=== PATIENT | male | born 1955 | race Caucasian/White ===

== ENCOUNTER → 2019-03-11 | Outpatient (CLI) | payer OTHER ==
[~2019-03-11] MED LIST: ALPRAZOLAM PO; ALTACE PO; AMLODIPINE BESY10 MG PO; CALCIUM PO; ENOXAPARIN30 MG/0.3 SQ; ENOXAPARIN40 MG/0.4; FISH OIL 1,001000 MG PO; FISHOIL PO; HCTZ PO; HYDROCHLOROTH12.5 M1 PO; LODINE XL400 MG PO; MELOXICAM7.5 MG PO; MOBIC7.5 MG PO; MS CONTIN15 MG PO; NORFLEX100 MG PO; OXYCODONE HCL 55 MG PO; OXYCODONE HCL10 MG PO; OXYCODONE HCL15 MG PO; ROXYBOND PO; STOOL SOFTENER1 EAC2 PO; XANAX 0.5 MG0.5 M1 PO; XANAX 0.5 MG0.5 MG PO
== END ==
LOC: M.PC 08:50
DX: M54.5 Low back pain (principal); M54.2 Cervicalgia; Z79.899 Other long term (current) drug therapy

== ENCOUNTER → 2019-04-08 | Outpatient (CLI) | payer OTHER ==
--- NOTE | ~2019-04-08 | PAINCON ---
[address] [address] PAIN MANAGEMENT CONSULTATION Name: WHIT KAPLAN [id number] Admission: 04/08/19 Attend Phys: Edgar Fletcher MD Discharge: Date of : 53 Report #: [id number] THIS REPORT FOR: //name// CC: Edgar Bryant DATE OF SERVICE: 04/08/2019 CHIEF COMPLAINT: Low back and neck pain. HISTORY: The patient is a 63-year-old gentleman who has been followed in the pain clinic because of chronic pain. He has been experiencing pain for greater than 20 years. Complains of pain in the neck area as well as in the right and left shoulders. Right shoulder pain secondary to history of rotator cuff problems. His left shoulder pain he attributed somewhat to his neck as well. States that he has some weakness in the arm with some numbness and tingling down into the arm. Rates his pain as a 3/10 today. He has been treated for lumbar radiculopathy in the past not much complaint or change in the lumbar area at this point. The right torn rotator cuff repair still seems to be somewhat limiting his arm range of motion. Notes that his pain increases with walking and standing. Notes that the medicines are helpful. Twisting, bending and lifting are problematic. He does use heat, cold as well as rest. His medications are beneficial. He feels that the oxycodone medication and Xanax were beneficial. He would like to have them renewed. He feels he is about 70% improved with his medications. ALLERGIES: No known drug allergies. CURRENT MEDICATIONS: Alprazolam 0.5 mg 2 tablets at bedtime, amlodipine 5 mg, Flomax 0.4 mg, oxycodone 15 mg one p.o. 6 hours p.r.n., ramipril 10 mg. PAIN CLINIC ASSESSMENT/PQRS: 1. The patient has a history of osteoarthritic changes involving his right shoulder. He is not being treated for rheumatoid arthritis. He does complain of some left arm pain. Does complain of some lumbar pain. 2. Height 5 feet 10 inches, weight 191 pounds, BMI is 27.4. 3. Vital signs: Blood pressure 147/78, heart rate 67, respiratory rate 16, room air saturation 96%, temperature 97.7. 4. Pain intensity 3/10. 5. Fall history: The patient has not fallen in the last 3 months. 6. Blood thinner. The patient is not on a blood thinning medication. 7. Hypertension. The patient is being treated for hypertension. 8. Opioids greater than 6 weeks. The [facility]. 9. Risk assessment tool, low for opioid use. 10. [place] [address] PAIN MANAGEMENT CONSULTATION Name: WHIT KAPLAN Room: [facility]#: [id number] Admission: 04/08/19 Attend Phys: Edgar Fletcher MD Discharge: Date of : 53 Report #: [id number] 11. Recreational drug use. The patient denies. 12. Tobacco: The patient does smoke cigarettes. We have discussed the benefits of smoking cessation. Has smoked for 20 years. Smokes 1-1/2 pack of cigarettes per day. 13. Alcohol: The patient denies other than rare use of alcoholic beverages. PHYSICAL EXAMINATION: GENERAL: The patient is a well-developed, well-nourished white male. Appears his stated age. He is alert and oriented x 3. Affect is appropriate. Speech is fluent. HEENT: Normocephalic, atraumatic. Extraocular eye muscles intact. Sclerae nonicteric. Mucous membranes are moist. NECK: Without adenopathy. The patient has some soreness in his neck. Notes that there is some pain radiating down to the area of the C1 portion of his neck. Has pain in his right deltoid with some limited range of motion. Has pain and perception of discomfort down his left arm with some numbness and tingling into his forearm. LUNGS: Generally clear to auscultation. HEART: Regular rate. ABDOMEN: Nontender. MUSCULOSKELETAL: Without significant scoliosis, kyphosis or lordosis. The patient has history of lumbar radicular pain. No real complaints of pain today. IMPRESSION: 1. Chronic pain treated with complex medical management using opioids. 2. Anxiety disorder. 3. Bursitis. 4. Bilateral trochanteric pain, cervical radiculopathy. 5. Chronic pain syndrome. 6. Hypertension. 7. Osteoarthritis of the spine. 8. History of bilateral hip replacements. RECOMMENDATIONS: We discussed treatment options with the patient. At this juncture, we will continue with his medications. He feels medications are helpful. He feels he is about 70% improved. He is aware that opioid medications can be helpful. He is aware that opioid medications can become less effective over time. The patient is aware of some patients who have developed addiction. He is not exhibiting any addictive behavior. States he keeps his medications in a guarded area. He would like to continue the medications given that they are improving his way of life and activities of daily living with about 70% improvement. At this juncture, we will rewrite his opioid medication. The patient will continue with oxycodone 15 mg 1 p.o. t.i.d. He will also continue with Xanax 0.5 mg 1 p.o. t.i.d. [place] [address] PAIN MANAGEMENT CONSULTATION Name: WHIT KAPLAN Room: [facility]#: [id number] Admission: 04/08/19 Attend Phys: Edgar Fletcher MD Discharge: Date of : 53 Report #: [id number] We would like to thank you for letting us participate in his care. We hope he continues to improve. By: 0934 [id number]. Jason Fletcher MD /nt
== END ==
LOC: M.PC 05:11
DX: M54.12 Radiculopathy, cervical region (principal); M71.9 Bursopathy, unspecified; G89.29 Other chronic pain; F41.9 Anxiety disorder, unspecified; G89.4 Chronic pain syndrome; I10 Essential (primary) hypertension; M47.819 Spondylosis without myelopathy or radiculopathy, site unspecified; Z96.643 Presence of artificial hip joint, bilateral; Z79.899 Other long term (current) drug therapy; Z79.891 Long term (current) use of opiate analgesic

== ENCOUNTER → 2019-05-06 | Outpatient (CLI) | payer OTHER ==
[~2019-05-06] MED LIST changes: +ROXICODONE15 MG PO
--- NOTE | 2019-05-14 09:09 | PAINCON ---
[address] [address] PAIN MANAGEMENT CONSULTATION Name: WHIT KAPLAN Room: [facility]#: [id number] Admission: 05/06/19 Attend Phys: Edgar Fletcher MD Discharge: Date of : 53 Report #: [id number] THIS REPORT FOR: //name// CC: Edgar Bryant DO DATE OF SERVICE: 05/06/2019 CHIEF COMPLAINT: Chronic low back and neck pain. HISTORY OF PRESENT ILLNESS: The patient is a 63-year-old gentleman who has been seen in the pain clinic because of chronic back and neck pain. He continues to have some pain and discomfort that radiates down in his neck to the left arm and down into the arm area. He feels that his medications of oxycodone had been beneficial. He still has some pain and discomfort in his right shoulder. He has had rotator cuff surgery. He rates his pain score as a 2/10 today. Notes his pain is worse with activities. Has noted some increase in discomfort because of the colder temperatures. Walking, standing, lifting and bending, twisting can exacerbate his discomfort. He feels the medications are working reasonably well and would like to continue their use. He has returned today for renewal of his medications. He feels that he is about 70% improved with his current medical regimen. ALLERGIES: No known drug allergies. CURRENT MEDICATIONS: Alprazolam 0.5 mg 2 tablets at bedtime, amlodipine 5 mg, Flomax 0.4 mg, oxycodone 15 mg one p.o. q.6 hours p.r.n. and ramipril 10 mg. PAIN CLINIC ASSESSMENT AND PQRS: 1. The patient has a history of osteoarthritis and has had bilateral hip replacements. He has shoulder pain and has had right rotator cuff repair. He is not being treated for rheumatoid arthritis. He does complain of some lumbar pain. 2. Height 5 feet 10 inches, weight 195 pounds, BMI is 28.0. 3. Vital signs: Blood pressure 151/77, heart rate 66, respiratory rate 16, room air saturation is 97% and temperature 97.7. 4. Pain intensity is 2/10. 5. Fall history: The patient has not fallen since we saw him last. 6. Blood thinner. The patient is not on a blood-thinning medication. 7. Hypertension. The patient is being treated for hypertension. 8. Opioids greater than 6 weeks. The [facility]. 9. Risk assessment tool, low for opioid use. 10. Functional assessment tool. 11. Recreational drug [place]. [place] [address] PAIN MANAGEMENT CONSULTATION Name: WHIT KAPLAN Room: [facility]#: [id number] Admission: 05/06/19 Attend Phys: Edgar Fletcher MD Discharge: Date of : 53 Report #: [id number] 12. Tobacco: The patient denied: The patient does smoke cigarettes. We discussed the risks and benefits of smoking cessation. Continues to smoke one and a half pack of cigarettes per day, has smoked for the last 20 years. 13. Alcohol. The patient denies use of alcohol except on rare occasion. PHYSICAL EXAMINATION: GENERAL: The patient is a well-developed, well-nourished white male. Appears his stated age. He is alert and oriented x 3. His affect is appropriate. Speech is fluent. HEENT: Normocephalic, atraumatic. Extraocular eye muscles intact. Sclerae nonicteric. The patient is wearing glasses. NECK: Without adenopathy or JVD. The patient has pain and discomfort that radiates from his left shoulder down to the left arm. Has some pain and discomfort in the right deltoid area with some decreased range of motion. LUNGS: Generally clear to auscultation. HEART: Regular rate. ABDOMEN: Nontender. MUSCULOSKELETAL: Without significant scoliosis, kyphosis, or lordosis. The patient has a history of lumbar radicular pain. IMPRESSION: 1. Chronic pain treated with complex medical management using opioids. 2. Anxiety disorder. 3. Bursitis. 4. Bilateral trochanteric pain. 5. Cervical radiculopathy. 6. Chronic pain syndrome. 7. Hypertension. 8. Osteoarthritis of the spine. 9. History of bilateral hip replacements. RECOMMENDATIONS: We discussed treatment options with the patient. At this juncture, we will continue with his current medical regimen of oxycodone 15 mg 1 p.o. t.i.d. The patient is aware that these medications can be helpful. He is aware these medications can become less effective as time goes on. He is not showing signs of addiction. He has taken the medication as prescribed. We have explained that 70,000 people last year as a result of use of opioid, as a result of overdosing. At this juncture, he would like to continue with his medications. A script for his medication of oxycodone 15 mg 1 p.o. t.i.d. He feels that these medications are helpful. He is aware of that use of Xanax and his other medication in conjunction with alcohol could be problematic. The patient refrained from doing this. We would like to thank you for letting us participate in his care. We hope he [address] [address] PAIN MANAGEMENT CONSULTATION Name: WHIT KAPLAN Room: [facility]#: [id number] Admission: 05/06/19 Attend Phys: Edgar Fletcher MD Discharge: Date of : 53 Report #: [id number] continues to improve. The patient has been written for alprazolam 0.5 mg one p.o. t.i.d. in conjunction with oxycodone 1 tablet of 15 mg p.o. t.i.d. <ELECTRONICALLY SIGNED> By: Edgar Fletcher MD 05/14/19 0909 [id number] [id number]. Jason Fletcher MD /nt
== END ==
LOC: M.PC 05:46
DX: M47.819 Spondylosis without myelopathy or radiculopathy, site unspecified (principal); M54.12 Radiculopathy, cervical region; G89.4 Chronic pain syndrome; I10 Essential (primary) hypertension; F41.9 Anxiety disorder, unspecified; Z96.643 Presence of artificial hip joint, bilateral; Z79.891 Long term (current) use of opiate analgesic

== ENCOUNTER → 2019-06-03 | Outpatient (CLI) | payer OTHER ==
--- NOTE | 2019-06-09 19:22 | PAINCON ---
[address] [address] PAIN MANAGEMENT CONSULTATION Name: WHIT KAPLAN Room: [facility]#: [id number] Admission: 06/03/19 Attend Phys: Edgar Fletcher MD Discharge: Date of : 53 Report #: [id number] THIS REPORT FOR: //name// CC: Edgar Bryant DO DATE OF SERVICE: 06/03/2019 CHIEF COMPLAINT: Pain in the neck and down in the left arm as well as low back pain. HISTORY: The patient is a 63-year-old gentleman who has been followed in the Pain Clinic because of chronic pain. As you may recall, he has had some problems with cervical radicular pain. It involves his left shoulder area with some numbness and tingling down into his arm. States that he has some nerve damage there, which is probably secondary to his neck. Also, has pain in his low back area. He has had some problems with his rotator cuff. He has undergone surgery for that. He notes that the colder temperatures have worsened his discomfort. Temperature outside today is 13. Notes that walking, standing, lifting, bending all can exacerbate his problem. He feels overall that pain is about 80%-85% improved with his current medical regimen. Notes that heat, cold as well as rest can improve his discomfort. He has returned today for renewal of his medication. He has had no complications with it. ALLERGIES: No known drug allergies. CURRENT MEDICATIONS: Alprazolam 0.5 mg two tablets at bedtime, amlodipine 5 mg, Flomax 0.4 mg, oxycodone 15 mg one p.o. t.i.d., ramipril 10 mg. PAIN CLINIC ASSESSMENT/PQRS: 1. The patient has a history of osteoarthritis and has had bilateral hip replacements. He has pain in his shoulder and has had right rotator cuff repair. He is not being treated for rheumatoid arthritis. 2. Height 5 feet 10 inches, weight 201 pounds, BMI is 28.8. 3. Vital Signs: Blood pressure 164/80, heart rate 68, respiratory rate 16, room air saturation 98%, temperature 97.6. 4. Pain score 3/10. 5. Fall history. The patient has not fallen in the last 3 months. 6. Blood thinner. The patient is not on a blood thinning medication. 7. Hypertension. The patient is being treated for hypertension. 8. Opioids greater than six weeks. The patient received medication from [facility]. 9. Risk assessment tool, low for opioid use. 10. Functional assessment tool. 11. Recreational drug [place] [address] PAIN MANAGEMENT CONSULTATION Name: WHIT KAPLAN Room: [facility]#: [id number] Admission: 06/03/19 Attend Phys: Edgar Fletcher MD Discharge: Date of : 53 Report #: [id number] 12. Tobacco. The patient admits to smoking cigarettes. He has smoked one and half pack of cigarettes per day for last 20 years. 13. Alcohol. The patient denies use of alcoholic beverages except rarely. PHYSICAL EXAMINATION: GENERAL: The patient is a well-developed, well-nourished white male. Appeared his stated age. He is alert and oriented x 3. His affect is appropriate. Speech is fluent. He does smell of tobacco. HEENT: Normocephalic, atraumatic. Extraocular eye muscles intact. Sclerae nonicteric. The patient is wearing glasses. NECK: Without adenopathy or JVD. The patient has some pain and discomfort in his neck with pain that radiates into the left shoulder with some down the left arm. Notes some decreased range of motion in his left shoulder. LUNGS: Clear to auscultation. HEART: Regular rate. ABDOMEN: Nontender. Bowel sounds present. MUSCULOSKELETAL: Without significant scoliosis, kyphosis or lordosis. IMPRESSION: 1. Chronic pain treated with complex medical regimen using opioids. 2. Anxiety disorder. 3. Bursitis. 4. Bilateral trochanteric pain. 5. Cervical radiculopathy. 6. Chronic pain syndrome. 7. Hypertension. 8. Osteoarthritis of the spine. 9. History of bilateral hip replacements. RECOMMENDATIONS: We discussed treatment options with the patient. At this juncture, we will continue with his current medications. He feels that overall things are improved with use of his Roxicodone. Rates his pain as a 3 today. He feels that his pain is about 85% improved on his current regimen. He is able to stay active. He is able to enjoy life. He is keeping his medications in a guarded area. He is aware that addiction can develop. He does not feel that he is addicted. He is showing no signs of addictive behavior. Keeps his medications in a guarded area. The patient feels that the Xanax medication helps with his anxiety. He would like to have this medication renewed. A script for Xanax 0.5 mg one p.o. t.i.d. has been written, a total of 90 tablets. The patient will also continue with the Roxicodone 15 mg one p.o. t.i.d. [address] [address] PAIN MANAGEMENT CONSULTATION Name: WHIT KAPLAN Room: [facility]#: [id number] Admission: 06/03/19 Attend Phys: Edgar Fletcher MD Discharge: Date of : 53 Report #: [id number] He will call us if he has any concerns. We would like to thank you for letting us participate in his care. We hope he continues to improve. <ELECTRONICALLY SIGNED> By: Edgar Fletcher MD 06/09/19 [id number] 1009N. Jason Fletcher MD /nt
== END ==
LOC: M.PC 04:12
DX: G89.4 Chronic pain syndrome (principal); F41.9 Anxiety disorder, unspecified; M54.12 Radiculopathy, cervical region; I10 Essential (primary) hypertension; M47.819 Spondylosis without myelopathy or radiculopathy, site unspecified; Z96.643 Presence of artificial hip joint, bilateral

== ENCOUNTER → 2019-07-01 | Outpatient (CLI) | payer OTHER ==
[~2019-07-01] MED LIST changes: +FLOMAX0.4 MG PO
--- NOTE | ~2019-07-01 | PAINCON ---
[address] [address] PAIN MANAGEMENT CONSULTATION Name: WHIT KAPLAN [id number] Admission: 07/01/19 Attend Phys: Edgar Fletcher MD Discharge: Date of : 53 Report #: [id number] THIS REPORT FOR: //name// CC: Edgar Bryant DO DATE OF SERVICE: 07/01/2019 CHIEF COMPLAINT: Medications are working relatively well, but still having pain in the neck. HISTORY: The patient is a 63-year-old gentleman who has been followed in the pain clinic. As you will recall, he has a history of back pain. It involves the neck as well. Notes that if he turns his head in a certain position, he experiences more pain and discomfort. It involves his right shoulder. He has had a right rotator cuff repair. Rotation of his neck increases the pain and discomfort he finds in this area. He has undergone surgery for the rotator cuff. He notes that because of the change in temperature, his pain has changed. He rates his pain as a 3/10 at this point. Feels that he is about 80%-85% better with his current medical regimen. He is able to remain active because of this benefit he receives from his medications. He has returned today with the hopes to have his medications renewed. ALLERGIES: No known drug allergies. CURRENT MEDICATIONS: Alprazolam 0.5 mg 2 tablets at bedtime, amlodipine 5 mg, Flomax 0.4 mg, oxycodone 5 mg 1 p.o. t.i.d., Ramipril 10 mg. PAIN CLINIC ASSESSMENT/PQRS: 1. The patient has history of osteoarthritis and had bilateral hip replacements. Has some pain in his right shoulder. Has had a right shoulder rotator cuff repair. He is not being treated for rheumatoid arthritis. 2. Height 5 feet 10 inches, weight is 202 pounds, BMI is 29, blood pressure 145/100, heart rate 77, respiratory rate 16, room air saturation 97%, temperature 97.6. 3. Pain score 3/10. 4. Fall history: The patient has not fallen in the last 3 months. 5. Blood thinner. The patient is not on a blood thinning medication. 6. Hypertension. The patient is being treated for hypertension. 7. Opioids greater than 6 weeks. [facility]. 8. Risk assessment tool, low for opioid use. 9. Functional assessment tool. 10. Recreational drug use: The patient denies. 11. Tobacco: The patient admits to tobacco. [place] [address] PAIN MANAGEMENT CONSULTATION Name: WHIT KAPLAN [facility] [id number] Admission: 07/01/19 Attend Phys: Edgar Fletcher MD Discharge: Date of : 53 Report #: [id number] 20 years. Smokes 1-1/2 pack of cigarettes daily. 12. Alcohol. The patient denies use of alcoholic beverages except on rare occasion. PHYSICAL EXAMINATION: GENERAL: The patient is a well-developed, well-nourished white male. Appears his stated age. He is alert and oriented x 3. Affect is appropriate. Speech is fluent. Does smell of tobacco. HEENT: Normocephalic, atraumatic. Extraocular eye muscles intact. Sclerae nonicteric. Mucous membranes are moist. The patient is wearing glasses. NECK: Without adenopathy or JVD. Complains of some pain and discomfort when he rotates his head to the right or the left. Has had some pain that radiates down to his left arm. Has decreased range of motion in his shoulders. HEART: Regular rate. ABDOMEN: Nontender. Bowel sounds present. MUSCULOSKELETAL: Without significant scoliosis, kyphosis or lordosis. IMPRESSION: 1. Chronic pain treated with complex medical regimen using opioids. 2. Anxiety disorder. 3. Bursitis. 4. Bilateral trochanteric pain. 5. Cervical radiculopathy. 6. Chronic pain syndrome. 7. Hypertension. 8. Osteoarthritis of the spine. 9. History of bilateral knee replacements. RECOMMENDATIONS: We discussed treatment options with the patient. At this juncture, we will continue with his medications. He feels that they are helpful. He is able to engage in activities, would not be able to without their use. He notes that he gets about 85% improvement with his pain. He has some pain and discomfort with exchanging cold temperatures. Walking, standing, bending, and lifting are problematic. Notes that use of medications, hot, cold and rest are beneficial as well. He is aware that opioid medications can be problematic in certain patients. He is not having withdrawal symptoms. He is not showing signs of addiction. He has taken the medication as prescribed. A script for his medications has been rewritten. He will continue with the oxycodone 15 mg 1 p.o. t.i.d., a total of 90 tablets have been provided. The patient will also continue with his antianxiety medication and Xanax 0.5 mg 1 p.o. t.i.d., a total of 90 tablets [place] [address] PAIN MANAGEMENT CONSULTATION Name: WHIT KAPLAN Room: [facility]#: [id number] Admission: 07/01/19 Attend Phys: Edgar Fletcher MD Discharge: Date of : 53 Report #: [id number] We would like to thank you for letting us participate in his care. We hope he continues to improve. By: 0951 1033N. Jason Fletcher MD /nt
== END ==
LOC: M.PC 05:03
DX: M54.12 Radiculopathy, cervical region (principal); M25.511 Pain in right shoulder; M71.9 Bursopathy, unspecified; G89.4 Chronic pain syndrome; I10 Essential (primary) hypertension; F41.9 Anxiety disorder, unspecified; Z79.891 Long term (current) use of opiate analgesic; Z79.899 Other long term (current) drug therapy

== ENCOUNTER → 2019-07-29 | Outpatient (CLI) | payer OTHER ==
--- NOTE | ~2019-07-29 | PAINCON ---
[facility] [address] [place] [address] PAIN MANAGEMENT CONSULTATION Name: WHIT KAPLAN Room: [facility]#: [id number] Admission: 07/29/19 Attend Phys: Edgar Fletcher MD Discharge: Date of : 53 Report #: [id number] THIS REPORT FOR: //name// CC: Edgar Bryant DO DATE OF SERVICE: 07/29/2019 CHIEF COMPLAINT: Pain in the neck area, hips and rotator cuff. HISTORY: The patient is a 63-year-old gentleman who has been followed in the Pain Clinic. He has a history of back pain. He also has pain involving his neck. He has pain involving his right shoulder. He has had some problem with his rotator cuff and has had surgical repair, but still continues to have pain. Has pain in his hips. Has had hip replacements. He feels that his pain is about 80% to 85% improved on his current regimen of oxycodone. Notes some tingling in his left arm. He has returned today with the hopes of having his medications renewed. States that he has taken the medication as prescribed with no side effects. ALLERGIES: No known drug allergies. CURRENT MEDICATIONS: Alprazolam 0.5 mg 2 tablets at bedtime, amlodipine 5 mg, Flomax 0.4 mg, oxycodone 15 mg 1 p.o. t.i.d., ramipril 10 mg. PAIN CLINIC ASSESSMENT AND PQRS: 1. The patient has a history of osteoarthritis, has had bilateral hip replacements. Has some right shoulder pain. He has had right rotator cuff repair. He has not being treated for rheumatoid arthritis. 2. Height 5 feet 10 inches, 197 pounds, BMI is 28.5. 3. Vital signs: Blood pressure is 151/86, heart rate 65, respiratory rate 16, room air saturation 97%, temperature 97.8. 4. Pain intensity 09/29. 5. Fall history: The patient has not fallen in the last 3 months. 6. Blood thinner. The patient is not on a blood-thinning medication. 7. Hypertension. The patient is being treated for hypertension. 8. Opioids greater than 6 weeks. The patient receives medication [facility], pain clinic. 9. Risk assessment tool, low for opioid use. 10. Functional assessment tool, reviewed. 11. Recreational drug use: The patient denies. 12. Tobacco: The patient admits to use of tobacco. Has used cigarettes for the past 20 years. Smokes 1-1/2 pack of cigarettes per day at this point. 13. Alcohol. The patient denies use of alcoholic [place] [address] PAIN MANAGEMENT CONSULTATION Name: WHIT KAPLAN Room: [facility]#: [id number] Admission: 07/29/19 Attend Phys: Edgar Fletcher MD Discharge: Date of : 53 Report #: [id number] PHYSICAL EXAMINATION: GENERAL: The patient is a well-developed, well-nourished white male. Appears his stated age. He is alert and oriented x 3. His affect is appropriate. Speech is fluent. HEENT: Normocephalic, atraumatic. Extraocular eye muscles intact. Sclerae nonicteric. Mucous membranes are moist. The patient is wearing glasses. Does smell of tobacco smoke. NECK: Without adenopathy or JVD. Has complained of pain in the right shoulder area. Notes some increased pain and discomfort in the left arm. Notes that there is some tingling down into his left arm. Notes some decreased range of motion in his shoulders. HEART: Regular rate. ABDOMEN: Nontender. MUSCULOSKELETAL: Without significant scoliosis, kyphosis or lordosis. IMPRESSION: 1. Chronic pain treated with complex medical management using opioids. 2. Anxiety disorder. 3. Bursitis. 4. Bilateral trochanteric pain in the past. 5. Cervical radiculopathy. 6. Chronic pain syndrome. 7. Hypertension. 8. Osteoarthritis of the spine. 9. History of bilateral hip replacements. RECOMMENDATIONS: We discussed treatment options with the patient. At this juncture, he feels that his medications continue to be helpful. We will continue with his current medical regimen of Roxicodone. The patient is aware that opioid medications can be helpful. They can become less effective over time secondary to development of tolerance. He feels that the medications are beneficial. He is able to engage in more activities than he could without them. He keeps his medications in a guarded area. He is not showing signs of addiction. He is taking the medications as prescribed. We will continue with his oxycodone. He will also continue with Xanax. He is aware that these medications can be problematic if not taken as directed. He will continue his medications. A script for Xanax 0.5 mg 1 p.o. t.i.d. has been written. A script for oxycodone 15 mg 1 p.o. t.i.d. have been written. The patient will call us if he has any concerns. [address] [address] PAIN MANAGEMENT CONSULTATION Name: WHIT KAPLAN Room: [facility]#: [id number] Admission: 07/29/19 Attend Phys: Edgar Fletcher MD Discharge: Date of : 53 Report #: [id number] We would like to thank you for letting us participate in his care. We hope he continues to improve. By: [id number]. Jason Fletcher MD /anil
== END ==
LOC: M.PC 09:07
DX: M54.12 Radiculopathy, cervical region (principal); I10 Essential (primary) hypertension; F41.9 Anxiety disorder, unspecified; Z79.899 Other long term (current) drug therapy; Z79.891 Long term (current) use of opiate analgesic; Z96.643 Presence of artificial hip joint, bilateral

== ENCOUNTER → 2019-08-26 | Outpatient (CLI) | payer OTHER ==
--- NOTE | ~2019-08-26 | PAINCON ---
[address] [address] PAIN MANAGEMENT CONSULTATION Name: WHIT KAPLAN Room: [facility]#: [id number] Admission: 08/26/19 Attend Phys: Edgar Fletcher MD Discharge: Date of : 53 Report #: [id number] THIS REPORT FOR: //name// cc: Hal Bryant Reuel M. DO ~ THIS REPORT FOR: //name// CC: Edgar Bryant DO DATE OF SERVICE: 08/26/2019 CHIEF COMPLAINT: Pain in the hips, back and right rotator cuff. HISTORY: The patient is a 63-year-old gentleman who has been followed in the pain clinic because of chronic neck and back pain. He returns today indicating that his pain continues to be helped with his current medical regimen. He rates his pain as a 3/10. Has pain in both hips, which have been replaced. Also, has pain in his right rotator cuff. Overall, he feels his medications are helpful. They are not affecting his sensorium. He is able to think clearly. No problem with bowel or bladder function. ALLERGIES: No known drug allergies. CURRENT MEDICATIONS: Alprazolam 0.5 mg 2 tablets at bedtime, amlodipine 5 mg, Flomax 0.4 mg, oxycodone 15 mg 1 p.o. t.i.d., ramipril 10 mg. PAIN CLINIC ASSESSMENT AND PQRS: 1. The patient has a history of osteoarthritis. He has had bilateral hip replacements. Has pain in his right shoulder and has had a rotator cuff tear. The patient is not being treated for rheumatoid arthritis. 2. Height 5 feet 10 inches, weight 201 pounds, BMI 28.6. 3. Vital signs: Blood pressure 149/76, heart rate 74, respiratory rate 18, room air saturation 96%, temperature 98.1. 4. Pain intensity is a 3/10. 5. Fall history: The patient has not fallen since we saw her last. 6. Blood thinner. The patient is not on a blood-thinning medication 7. Hypertension. The patient is being treated for hypertension. 8. Opioids greater than 6 weeks. The patient received medication [facility], pain clinic. 9. Risk assessment tool, low for opioids. 10. Functional assessment tool reviewed. 11. Recreational drug use: The patient denies. 12. Tobacco: The patient admits to use of tobacco. Has used tobacco for the last 20 years. Smokes 1-1/2 pack of cigarettes per [place] [address] PAIN MANAGEMENT CONSULTATION Name: WHIT KAPLAN Room: [facility]#: [id number] Admission: 08/26/19 Attend Phys: Edgar Fletcher MD Discharge: Date of : 53 Report #: [id number] 13. Alcohol. The patient denies use of alcoholic beverages except on rare occasion. PHYSICAL EXAMINATION: GENERAL: The patient is a well-developed, well-nourished white male. Appears his stated age. He is alert and oriented x 3. His affect is appropriate. Speech is fluent. HEENT: Normocephalic, atraumatic. Mucous membranes are moist. The patient is wearing glasses. He is hard of hearing with decreased auditory acuity. NECK: Without adenopathy or JVD. The patient has some right shoulder pain. Has some discomfort in the left arm. Decreased range of motion in shoulders. HEART: Regular rate. ABDOMEN: Nontender. MUSCULOSKELETAL: Without significant scoliosis, kyphosis or lordosis. Lower extremity muscle strength judged to be 5-/5 for the major muscle groups in the lower extremity. IMPRESSION: 1. Chronic pain with complex medical management using opioids. 2. Anxiety disorder. 3. Bursitis. 4. Bilateral trochanteric pain in the past. 5. Cervical radiculopathy. 6. Chronic pain syndrome, treated with opioid medications to help control the pain. 7. Hypertension. 8. Osteoarthritis of the spine. 9. History of bilateral hip replacements. RECOMMENDATIONS: We discussed treatment options with the patient. At this juncture, he feels medications are working reasonably well. He does not have any problems with the medications. He has taken them as prescribed. Risks and benefits of opioid medications again were discussed and reviewed. Opioid medications can be in some folks problematic. They can develop addiction. The patient does not show any signs of addiction. He has taken the medication as prescribed. Finds that they enable him to engage in activities of daily living he would not be able to without their use. He does not have any problems with clouding his sensorium. He will continue with the medication. A script for his medications of oxycodone 15 mg 1 p.o. t.i.d. has been provided. The patient will also continue with alprazolam 0.5 mg [address]i.d[address] [address] PAIN MANAGEMENT CONSULTATION Name: WHIT KAPLAN Room: [facility]#: [id number] Admission: 08/26/19 Attend Phys: Edgar Fletcher MD Discharge: Date of : 53 Report #: [id number] We would like to thank you for letting us participate in his care. We hope he continues to improve. He will call us if he has any concerns. By: [id number]. Jason Fletcher MD /nt
== END ==
LOC: M.PC 05:15
DX: G89.29 Other chronic pain (principal); F41.9 Anxiety disorder, unspecified; M71.9 Bursopathy, unspecified; M47.819 Spondylosis without myelopathy or radiculopathy, site unspecified; Z96.643 Presence of artificial hip joint, bilateral; Z79.891 Long term (current) use of opiate analgesic

== ENCOUNTER → 2019-09-23 | Outpatient (CLI) | payer OTHER ==
--- NOTE | 2019-10-17 08:28 | PAINCON ---
[address] [address] PAIN MANAGEMENT CONSULTATION Name: WHIT KAPLAN [id number] Admission: 09/23/19 Attend Phys: Edgar Fletcher MD Discharge: Date of : 53 Report #: [id number] THIS REPORT FOR: //name// cc: Hal Bryant Reuel M. DO ~ THIS REPORT FOR: //name// CC: Edgar Bryant DATE OF SERVICE: 09/23/2019 CHIEF COMPLAINT: Chronic pain in the hip, back and shoulders. HISTORY: The patient is a 63-year-old gentleman who has been followed in the pain clinic. As you may recall, he has a number of pain generators. He has chronic neck pain. He has back pain. He has some complaints of right rotator cuff pain. He feels that his current medications are helpful. He denies any significant changes. Her rates his pain as a 3/10. He feels that activities are limited. He notes walking, sitting, standing can worsen his pain. He does try to decrease the pain by using cold and heat. Rest sometimes could be an option. Overall, he feels his medications with the oxycodone continues to be efficacious. He has returned today with the hopes of renewing his medication. He states that these medications help make his daily existence more tolerable. He denies any problems with these medications fogging his sensorium. He is able to think clearly. Denies any new bowel or bladder function problems. ALLERGIES: No known drug allergies. CURRENT MEDICATIONS: Alprazolam 0.5 mg 2 tablets at bedtime, amlodipine 5 mg, Flomax 0.4 mg, oxycodone 15 mg 1 p.o. t.i.d., ramipril 10 mg. PAIN CLINIC ASSESSMENT AND PQRS: 1. The patient has a history of osteoarthritis. He has had bilateral hip replacement. He has pain in his right shoulder and has had a rotator cuff tear. The patient is not being treated for rheumatoid arthritis. 2. Height 5 feet 10 inch, weight 198 pounds, BMI is 28. 3. Vital Signs: Blood pressure 149/85, heart rate 66, respiratory rate is 16, room air saturation is 95%, temperature 97.3. Pain score 3/10. 4. Fall history: The patient has not fallen since we saw him last. 5. Blood thinner. The patient is not on a blood thinning medication. 6. Hypertension. The patient is being treated for hypertension. 7. Opioids greater than 6 weeks. The [facility]. 8. Risk assessment tool, low for opioid use. 9. Functional assessment [place] [address] PAIN MANAGEMENT CONSULTATION Name: WHIT KAPLAN Room: [facility]#: [id number] Admission: 09/23/19 Attend Phys: Edgar Fletcher MD Discharge: Date of : 53 Report #: [id number] 10. Recreational drug use: The patient denies. 11. Tobacco: The patient admits to use of tobacco. He has used tobacco for the last 20 years. Smokes 1-1/2 packs of cigarettes per day at this juncture, we discussed benefits of smoking cessation. 12. Alcohol. The patient denies use of alcoholic beverages except on rare occasion. PHYSICAL EXAMINATION: GENERAL: The patient is a well-developed, well-nourished white male. Appears his stated age. He is alert and oriented x 3. His affect is appropriate. Speech is fluent. HEENT: Normocephalic, atraumatic. Extraocular eye muscles intact. Sclerae nonicteric. The patient is wearing glasses. The patient has decreased auditory acuity. NECK: Without JVD or adenopathy. The patient complains of some right shoulder pain. Also, has some pain in his left arm. Decreased range of motion in his shoulders. HEART: Regular rate. ABDOMEN: Nontender. MUSCULOSKELETAL: Without significant scoliosis, kyphosis or lordosis. Lower extremity muscle strength judged to be 5-/5. IMPRESSION: 1. Chronic pain with complex medical management using opioids. 2. Anxiety disorder. 3. Bursitis. 4. Bilateral trochanteric pain in the past. 5. Cervical radiculopathy. 6. Chronic pain syndrome, treated with opioid medications to help control this chronic pain. 7. Hypertension. 8. Osteoarthritis of the spine. 9. History of bilateral hip replacements. RECOMMENDATIONS: We discussed treatment options with the patient. At this juncture, we will continue with his medications. He feels that his medications are working well. He does not have any problems with the medications. Denies any bowel or bladder dysfunction problems. He is able to think clearly. He has not shown any signs of addiction. He has taken the medication as prescribed. Keeps his medications in a guarded area. He is aware that a number of people have over the past few years secondary to overdosing of medications. We will continue with his medication. A script for oxycodone 15 mg 1 p.o. t.i.d. has been provided. The patient will also continue with alprazolam 0.5 mg 1 p.o. t.i.d. He will call us if he has any concerns. [facility] [address] [place] [address] PAIN MANAGEMENT CONSULTATION Name: WHIT KAPLAN Room: [facility]#: [id number] Admission: 09/23/19 Attend Phys: Edgar Fletcher MD Discharge: Date of : 53 Report #: [id number] We would like to thank you for letting us participate in his care. We hope he continues to improve. <ELECTRONICALLY SIGNED> By: Edgar Fletcher MD 10/17/19 0828 [id number]. Jason Fletcher MD /PMT
== END ==
LOC: M.PC 04:20
DX: M54.5 Low back pain (principal); M54.2 Cervicalgia; M25.511 Pain in right shoulder; M25.559 Pain in unspecified hip; F31.9 Bipolar disorder, unspecified; M71.9 Bursopathy, unspecified; M54.12 Radiculopathy, cervical region; G89.4 Chronic pain syndrome; I10 Essential (primary) hypertension; M47.819 Spondylosis without myelopathy or radiculopathy, site unspecified; F11.20 Opioid dependence, uncomplicated; Z87.39 Personal history of other diseases of the musculoskeletal system and connective tissue

== ENCOUNTER → 2019-10-21 | Outpatient (CLI) | payer OTHER ==
--- NOTE | 2019-10-22 08:26 | PAINCON ---
[address] [address] PAIN MANAGEMENT CONSULTATION Name: WHIT KAPLAN Room: [facility]#: [id number] Admission: 10/21/19 Attend Phys: Edgar Fletcher MD Discharge: Date of : 53 Report #: [id number] THIS REPORT FOR: //name// cc: Hal Bryant Reuel M. DO ~ THIS REPORT FOR: //name// CC: Edgar Bryant DATE OF SERVICE: 10/21/2019 CHIEF COMPLAINT: Chronic hip, back and shoulder pain. HISTORY: The patient is a 63-year-old gentleman who has been followed in the pain clinic. He has pain in his neck. He also has pain in his right rotator cuff. He has pain in his hips bilaterally. He has had hip replacements. He feels that the current medication oxycodone is helpful. He is not having any complications from its use. He feels overall that things are about 85% improved with it. He is having pain when he is walking, standing, sitting, and with other activities. He has returned today for renewal of his medication. He is clear in his sensorium. ALLERGIES: No known drug allergies. CURRENT MEDICATIONS: Alprazolam 0.5 mg 2 tablets at bedtime, amlodipine 5 mg, Flomax 0.4 mg, oxycodone 15 mg 1 p.o. t.i.d., and ramipril 10 mg. PAIN CLINIC ASSESSMENT AND PQRS: 1. The patient has a history of osteoarthritis. He has had bilateral hip replacements. He has pain in his right shoulder and has had a rotator cuff tear. The patient is not being treated for rheumatoid arthritis. 2. Height 5 feet 0 inch, weight 196 pounds, BMI is 28. 3. Vital signs: Blood pressure is 114/68, heart rate 53, respiratory rate 16, room air saturation 95%, temperature is 97.4. 4. Fall history: The patient has not fallen since we saw him last. 5. Blood thinner. The patient is not on a blood thinning medication. 6. Hypertension. The patient is being treated for hypertension. 7. Opioids greater than 6 weeks. The patient receives medication from [facility], the pain clinic. 8. Risk assessment tool, low for opioid use. 9. Functional assessment tool. 10. Recreational drug use: The patient denies. 11. Tobacco: The patient admits to use of tobacco. The patient has used tobacco and has smoked for last 20 years, smokes 1-1/2 packs of cigarettes per day at this point. I have discussed the benefits [place] [address] PAIN MANAGEMENT CONSULTATION Name: WHIT KAPLAN Room: [facility]#: [id number] Admission: 10/21/19 Attend Phys: Edgar Fletcher MD Discharge: Date of : 53 Report #: [id number] 12. Alcohol. The patient denies use of alcoholic beverages except on rare occasion. PHYSICAL EXAMINATION: GENERAL: The patient is a well-developed, well-nourished white male. Appears his stated age. He is alert and oriented x 3. His affect is appropriate. Speech is fluent. HEENT: Normocephalic, atraumatic. Extraocular eye muscles intact. The patient is wearing glasses. He has decreased auditory acuity. NECK: Without adenopathy or JVD. The patient complains of some right shoulder pain. Has pain in his left arm. Decreased range of motion in his shoulders. HEART: Regular rate. ABDOMEN: Nontender. MUSCULOSKELETAL: Without significant scoliosis, kyphosis or lordosis. Walks with an antalgic gait. He use his hands to go from a sitting to a standing position. IMPRESSION: 1. Chronic pain with complex medical management using opioids. 2. Anxiety disorder. 3. Bursitis. 4. Bilateral trochanteric pain in the past. 5. Cervical radiculopathy. 6. Chronic pain syndrome. 7. Hypertension. 8. Osteoarthritis of the spine. 9. History of bilateral hip replacements. RECOMMENDATIONS: We discussed treatment options with the patient. We will continue with his current medications. He finds that these medications continue to be helpful. He feels that he is about 85% improved with their use. They are not clouding his sensorium. He is aware that these medications can be problematic in some people. He is not feeling the need to get medications and takes them from other physicians. At this point, he is using the medication as prescribed. We will continue with his alprazolam 0.5 mg 1 p.o. t.i.d. He will also continue with the oxycodone 10 mg 1 p.o. t.i.d. The combination of these medications are not causing an adverse effect. We would like to thank you for letting us participate in his care. We hope he continues to improve. <ELECTRONICALLY SIGNED> By: Edgar Fletcher MD 10/22/19 0826 [id number]. Jason Fletcher MD /nt
== END ==
LOC: M.PC 04:37
DX: M54.5 Low back pain (principal); M25.552 Pain in left hip; M25.551 Pain in right hip; M25.511 Pain in right shoulder; M54.2 Cervicalgia; F41.9 Anxiety disorder, unspecified; M71.50 Other bursitis, not elsewhere classified, unspecified site; M54.12 Radiculopathy, cervical region; G89.4 Chronic pain syndrome; I10 Essential (primary) hypertension; M47.819 Spondylosis without myelopathy or radiculopathy, site unspecified; F11.20 Opioid dependence, uncomplicated; Z96.643 Presence of artificial hip joint, bilateral; Z79.899 Other long term (current) drug therapy

== ENCOUNTER → 2019-11-20 | Outpatient (CLI) | payer OTHER ==
--- NOTE | ~2019-11-20 | PAINCON ---
[address] [address] PAIN MANAGEMENT CONSULTATION Name: WHIT KAPLAN [id number] Admission: 11/20/19 Attend Phys: Edgar Fletcher MD Discharge: Date of : 53 Report #: [id number] THIS REPORT FOR: //name// cc: Hal Bryant Reuel M. DO ~ THIS REPORT FOR: //name// CC: Edgar Bryant DO DATE OF SERVICE: 11/20/2019 CHIEF COMPLAINT: Continued hip pain, shoulder pain, and back pain. HISTORY: The patient is a 64-year-old gentleman who has been followed in the pain clinic. He has pain in his neck. He rates his pain overall as a 2. This involves the neck pain as well as the lower back pain. He feels that his medications of oxycodone continue to be quite helpful. He is not having any problems with the medications. Continues to have pain in his hips. He has had bilateral hip replacements. He feels that his pain is about 85% improved with the current regimen of medications. He notes that activities, walking, sitting, standing can be more problematic. He finds that use of his medications in conjunction with hot and cold are helpful. He does also find rest is beneficial. He is thinking clearly. Medications are not altering his sensorium. ALLERGIES: No known drug allergies. CURRENT MEDICATIONS: Alprazolam 0.5 mg 2 tablets at bedtime, amlodipine 5 mg, Flomax 0.4 mg, oxycodone 15 mg 1 p.o. t.i.d., and ramipril 10 mg. PAIN CLINIC ASSESSMENT/PQRS: 1. The patient has a history of osteoarthritis. He has had bilateral hip replacements. He also has pain in his right shoulder and has some rotator cuff tear. He is not being treated for rheumatoid arthritis. 2. Height 5 feet 0, weight 201 pounds, BMI is 28.7. 3. Vital signs: Blood pressure 139/59, heart rate 65, respiratory rate 16, room air saturation is 95%, temperature 97.9. 4. Fall history: The patient has not fallen in the last 3 months. 5. Blood thinner. The patient is not on a blood thinning medication. 6. Hypertension. The patient is being treated for hypertension. 7. Opioids greater than 6 weeks. The patient receives medication from the pain clinic. 8. Risk assessment tool, low for opioid use. 9. Functional assessment [place], [place] [address] PAIN MANAGEMENT CONSULTATION Name: WHIT KAPLAN Room: [facility]#: [id number] Admission: 11/20/19 Attend Phys: Edgar Fletcher MD Discharge: Date of : 53 Report #: [id number] 10. Recreational drug use. The patient denies. 11. Tobacco: The patient admits to use of tobacco. He has smoked for the last 20 years. Smokes 1-1/2 packs of cigarettes per day at this point. We have discussed the benefits of smoking cessation. 12. Alcohol. The patient denies use of alcohol except on rare occasions. PHYSICAL EXAMINATION: GENERAL: The patient is a well-developed, well-nourished white male. Appears his stated age. He is alert and oriented x 3. His affect is appropriate. Speech is fluent. HEENT: Normocephalic, atraumatic. Extraocular eye muscles intact. Sclerae are nonicteric. The patient has decreased auditory acuity. NECK: Without adenopathy or JVD. Complains of some shoulder pain involving the left and right area. Notes some decreased range of motion. HEART: Regular rate. ABDOMEN: Nontender. MUSCULOSKELETAL: Without significant scoliosis, kyphosis, or lordosis. Complaints of pain in the low back area. Uses hands to go from a sitting to a standing position. He has a somewhat antalgic gait. IMPRESSION: 1. Chronic pain with complex medical management using opioids. 2. Anxiety disorder. 3. Bursitis. 4. Bilateral trochanteric pain in the past. 5. Cervical radiculopathy. 6. Chronic pain syndrome. 7. Hypertension. 8. Osteoarthritis of the spine. 9. History of bilateral hip replacements. RECOMMENDATIONS: We discussed treatment options with the patient. At this juncture, he feels that the oxycodone 15 mg 1 p.o. t.i.d. continues to be helpful. He has taken the medication as prescribed. He is aware that opioid medications can become less effective as time goes on. This can be secondary to development of tolerance. He is aware that opioid medications for some patients can cause addiction. He has not shown any signs of addiction. He has taken the medication as prescribed. A script for his medications has been renewed. He will continue with the alprazolam 0.5 mg 1 p.o. t.i.d. He will also continue with oxycodone. Risks and benefits of oxycodone 15 mg 1 p.o. t.i.d. have been discussed [place] [address] PAIN MANAGEMENT CONSULTATION Name: WHIT KAPLAN Room: [facility]#: [id number] Admission: 11/20/19 Attend Phys: Edgar Fletcher MD Discharge: Date of : 53 Report #: [id number] We would like to thank you for letting us participate in his care. We hope he continues to improve. By: [id number]. Jason Fletcher MD /PMT
== END ==
LOC: M.PC 11-18 09:30
DX: M54.5 Low back pain (principal); M25.559 Pain in unspecified hip; M25.519 Pain in unspecified shoulder; M70.10 Bursitis, unspecified hand; M54.12 Radiculopathy, cervical region; G89.4 Chronic pain syndrome; I10 Essential (primary) hypertension; M47.9 Spondylosis, unspecified; M70.61 Trochanteric bursitis, right hip; M70.62 Trochanteric bursitis, left hip; F11.20 Opioid dependence, uncomplicated; F41.8 Other specified anxiety disorders; Z96.643 Presence of artificial hip joint, bilateral; Z79.899 Other long term (current) drug therapy

== ENCOUNTER → 2019-12-18 | Outpatient (CLI) | payer OTHER ==
--- NOTE | ~2019-12-18 | PAINCON ---
[address] [address] PAIN MANAGEMENT CONSULTATION Name: WHIT KAPLAN Room: [facility]#: [id number] Admission: 12/18/19 Attend Phys: Edgar Fletcher MD Discharge: Date of : 53 Report #: [id number] THIS REPORT FOR: //name// cc: Hal Bryant Reuel M. DO ~ THIS REPORT FOR: //name// CC: Edgar Bryant DO DATE OF SERVICE: 12/18/2019 CHIEF COMPLAINT: Pain in the hips, shoulders, and back. HISTORY: The patient is a 64-year-old gentleman who has been followed in the pain clinic. He has pain and discomfort, which is quite problematic. It involves the arms and hips. He has some neck pain. He rates it as a 3/10. He has returned today for renewal of his medications. He finds that oxycodone 15 mg 3 times a day is helpful. He feels that the pain today is about 85% improved with current medical regimen. He finds that these medications are not clouding his sensorium. He is able to think clearly. He has returned today for renewal of the medications. ALLERGIES: No known drug allergies. CURRENT MEDICATIONS: Alprazolam 0.5 mg 2 tablets at bedtime, amlodipine 5 mg, Flomax 0.4 mg, oxycodone 15 mg 1 p.o. t.i.d., and ramipril 10 mg. PAIN CLINIC ASSESSMENT/PQRS: 1. The patient has had bilateral hip replacements. Also, has pain in his shoulders and has had some rotator cuff tear. He is not being treated for rheumatoid arthritis. 2. Height 5 feet 0, weight 200 pounds, BMI 27.8. 3. Vital Signs: Blood pressure 140/60, heart rate 67, respiratory rate 18, room air saturation 96%, and temperature 97.8. 4. Fall history: The patient has not fallen in the last 3 months. 5. Blood thinner. The patient is not on a blood thinning medication. 6. Hypertension. The patient is being treated for hypertension. 7. Opioids greater than 6 weeks. The patient received medications from pain clinic. 8. Risk assessment tool, low for opioid use. 9. Functional assessment tool, reviewed. 10. Recreational drug use. The patient denies. 11. Tobacco: The patient admits to use of tobacco, has smoked for the last 20 years. Smokes 1-1/2 pack of [place] [address] PAIN MANAGEMENT CONSULTATION Name: WHIT KAPLAN Room: [facility]#: [id number] Admission: 12/18/19 Attend Phys: Edgar Fletcher MD Discharge: Date of : 53 Report #: [id number] 12. Alcohol. The patient denies use of alcoholic beverages except on rare occasion. PHYSICAL EXAMINATION: GENERAL: The patient is a well-developed, well-nourished white male. Appears his stated age. He is alert and oriented x 3. His affect is appropriate. Speech is fluent. HEENT: Normocephalic, atraumatic. Extraocular eye muscles intact. The patient is wearing glasses. He has decrease auditory acuity. ABDOMEN: Nontender. MUSCULOSKELETAL: Without significant scoliosis, kyphosis, or lordosis. The patient complains of pain in the low back area. Also, has pain when standing. Has an antalgic gait. Has pain in his hips. IMPRESSION: 1. Complex medical management using opioids. 2. Anxiety disorder. 3. Bursitis. 4. Bilateral trochanteric pain in the past. 5. Cervical radiculopathy. 6. Chronic pain syndrome. 7. Hypertension. 8. Osteoarthritis of the spine. 9. History of bilateral hip pain, status post replacements. RECOMMENDATIONS: We discussed treatment options with the patient. At this juncture, we will continue with his medications. He rates his pain as about 50% improved. He has taken the medication as prescribed. He is not having any untoward side effects. He is aware that opioid medications can become less effective as time goes on. He is aware that opioid medications have caused some people can develop addiction. He has been taken the medication for some time and does not exhibit any signs of addiction. We will renew his medications. A script for alprazolam 0.5 mg 1 p.o. t.i.d. will be written. The patient will also continue with oxycodone 15 mg 1 p.o. t.i.d. A script for these medications have been provided. The patient will call us if he has any concerns. We would like to thank you for letting us participate in his care. We hope he continues to improve. By: [id number]. Jason Fletcher MD /EDILBERTO
== END ==
LOC: M.PC 04:22
DX: M54.12 Radiculopathy, cervical region (principal); M25.511 Pain in right shoulder; M25.512 Pain in left shoulder; F11.20 Opioid dependence, uncomplicated; F41.9 Anxiety disorder, unspecified; M71.9 Bursopathy, unspecified; G89.4 Chronic pain syndrome; I10 Essential (primary) hypertension; M85.88 Other specified disorders of bone density and structure, other site; Z87.39 Personal history of other diseases of the musculoskeletal system and connective tissue; Z96.698 Presence of other orthopedic joint implants; Z87.891 Personal history of nicotine dependence; Z79.899 Other long term (current) drug therapy

== ENCOUNTER → 2020-01-15 | Outpatient (CLI) | payer OTHER ==
--- NOTE | 2020-01-29 15:59 | PAINCON ---
[address] [address] PAIN MANAGEMENT CONSULTATION Name: WHIT KAPLAN Room: [facility]#: [id number] Admission: 01/15/20 Attend Phys: Edgar Fletcher MD Discharge: Date of : 53 Report #: [id number] THIS REPORT FOR: //name// cc: Hal Bryant Reuel M. DO ~ THIS REPORT FOR: //name// CC: Edgar Bryant DATE OF SERVICE: 01/15/2020 CHIEF COMPLAINT: Pain in the hips, shoulders, and back. HISTORY: The patient is a 64-year-old gentleman who has been followed in the pain clinic because of chronic pain. He notes pain today is mostly in his neck. It depends on what he is doing. He did hurt his back, bending over and twisted in the wrong direction about 3-4 days ago. He rates pain as a 3/10 at this point. He feels that his medications are helpful. Finds that heat, cold, and rest can be beneficial. He has not had any complication from his medications. He has returned today with the hopes of renewing his medications. ALLERGIES: No known drug allergies. CURRENT MEDICATIONS: Alprazolam 0.5 mg 2 tablets at bedtime, amlodipine 5 mg, Flonase 0.5 mg, oxycodone 15 mg 1 p.o. t.i.d., and ramipril 10 mg. PAIN CLINIC ASSESSMENT AND PQRS: 1. Height 5 feet 10 inches, weight 203 pounds, BMI is 30. 2. Blood pressure 142/68, heart rate 73, respiratory rate 16, room air saturation 98%. 3. Pain intensity is 3/10. 4. Fall history: The patient has not fallen in the last 3 months. 5. Blood thinner. The patient is not on a blood thinning medication. 6. Hypertension. The patient is being treated for hypertension. 7. Opioids greater than 6 weeks, the patient receives medication from the pain clinic. 8. Risk assessment tool, low for opioid use. 9. Functional assessment tool, reviewed. 10. Recreational drug use. The patient denies. 11. Tobacco: The patient admits to use of tobacco, has smoked for the last 20 years. Smokes cigarettes per day. 12. Alcohol. The patient denies use of alcoholic beverages except on rare occasions. PHYSICAL EXAMINATION: [place] [address] PAIN MANAGEMENT CONSULTATION Name: WHIT KAPLAN Room: [facility]#: [id number] Admission: 01/15/20 Attend Phys: Edgar Fletcher MD Discharge: Date of : 53 Report #: [id number] GENERAL: The patient is a well-developed, well-nourished white male. Appears his stated age. He is alert and oriented x 3. His affect is appropriate. Speech is fluent. HEENT: Normocephalic, atraumatic. Extraocular eye muscles intact. The patient has a decreased auditory acuity. He is wearing a mask. HEART: Regular rate. ABDOMEN: Nontender. MUSCULOSKELETAL: Without significant scoliosis, kyphosis or lordosis. The patient complains of pain in the lower portion of his back. Has pain when he is standing. Has an antalgic gait. Uses his hands to go from a sitting to a standing position. Complains of pain in his hips. IMPRESSION: 1. Complex medical management using opioids. 2. Anxiety disorder. 3. Bursitis. 4. Bilateral trochanteric pain in the past. 5. Cervical radiculopathy. 6. Chronic pain syndrome. 7. Hypertension. 8. Osteoarthritis of the spine. 9. History of bilateral hip pain, status post hip replacements. RECOMMENDATIONS: We discussed treatment options with the patient. At this juncture, we will continue with his medications of oxycodone 15 mg 1 p.o. t.i.d. The patient is aware that opioid medications can become less effective as time goes on because of development of tolerance. He feels that his medications are working reasonably well. He would like to continue with these medications. We have discussed the number of people in the past few years, who have as a result of overdose of medications. They have been up to 70,000 in the last couple of years. He keeps his medications in a guarded area. A script for his medications of alprazolam 0.5 mg 1 p.o. t.i.d. has been rewritten. The patient will also continue with oxycodone 15 mg 1 p.o. t.i.d. He will call us if he has any concerns. We would like to thank you for letting us participate in his care. We hope he continues to improve. <ELECTRONICALLY SIGNED> By: Edgar Fletcher MD 01/29/20 1559 [id number]. Jason Fletcher MD /anil
== END ==
LOC: M.PC 04:49
PROVIDERS: ATTEND Anesthesiology Pain Medicine
DX: G89.4 Chronic pain syndrome (principal); F41.9 Anxiety disorder, unspecified; M54.12 Radiculopathy, cervical region; I10 Essential (primary) hypertension; M54.9 Dorsalgia, unspecified; M70.10 Bursitis, unspecified hand; F11.20 Opioid dependence, uncomplicated; Z87.39 Personal history of other diseases of the musculoskeletal system and connective tissue; Z79.899 Other long term (current) drug therapy

== ENCOUNTER → 2020-02-12 | Outpatient (CLI) | payer OTHER ==
--- NOTE | 2020-02-23 00:07 | PAINCON ---
[address] [address] PAIN MANAGEMENT CONSULTATION Name: WHIT KAPLAN [facility] [id number] Admission: 02/12/20 Attend Phys: Edgar Fletcher MD Discharge: Date of : 53 Report #: [id number] THIS REPORT FOR: //name// cc: Hal Bryant Reuel M. DO ~ THIS REPORT FOR: //name// CC: Edgar Bryant DATE OF SERVICE: 02/12/2020 CHIEF COMPLAINT: Pain in the hips, shoulders and back. HISTORY: The patient is a 64-year-old gentleman who has been followed in the pain clinic because of chronic pain. He has had bilateral hip replacement. He continues to have pain and discomfort in these areas. He also has a right rotator cuff discomfort problem. He has noticed some increased pain and discomfort because of projects he was working on at home. He was replacing a toilet. Bending over in activities associated with this have increased his pain and discomfort, somewhat. He returns today with the hopes of renewing his medications. He rates his pain as a 3/10. He feels that his medications are helpful and provided greater than 50% improvement in the pain. He has had up to 85% improvement in the past. He has returned and would like to continue with his medications. He does note that activities as well as cold temperatures can be problematic. He helps relieve the pain by taking his medications, using heat as well as rest. ALLERGIES: No known drug allergies. CURRENT MEDICATIONS: Alprazolam 0.5 mg 2 tablets at bedtime, amlodipine 5 mg, Flonase 0.5 mg, oxycodone 15 mg 1 p.o. t.i.d., and ramipril 10 mg. PAIN CLINIC ASSESSMENT AND PQRS: 1. Height 5 feet 10 inch, weight is 197 pounds, BMI is 28. 2. Vital Signs: Blood pressure 131/95, heart rate 73, respiratory rate 20, room air saturation 95%, temperature 99.0. 3. Pain intensity is 3/10. 4. Fall history: The patient has not fallen in the last 3 months. 5. Blood thinner. The patient is not on a blood thinning medication. 6. Hypertension. The patient is being treated for hypertension. 7. Opioids greater than 6 weeks. The patient receives medication from the pain clinic. 8. Risk assessment tool, low for opioid use. 9. Functional assessment tool reviewed. 10. Recreational [place] [address] PAIN MANAGEMENT CONSULTATION Name: WHIT KAPLAN Room: [facility]#: [id number] Admission: 02/12/20 Attend Phys: Edgar Fletcher MD Discharge: Date of : 53 Report #: [id number] 11. Tobacco: The patient admits to use of tobacco and has smoked for the last 20 years. 12. Alcohol. The patient denies use of alcoholic beverages except on rare occasion. PHYSICAL EXAMINATION: GENERAL: The patient is a well-developed, well-nourished white male. Appears his stated age. He is alert and oriented x 3. His affect is appropriate. Speech is fluent. HEENT: Normocephalic, atraumatic. Extraocular eye muscles intact. Sclerae nonicteric. Mucous membranes are moist. The patient is wearing glasses. He is wearing a mask. HEART: Regular rate. LUNGS: Generally clear. ABDOMEN: Nontender. MUSCULOSKELETAL: Without significant scoliosis, kyphosis or lordosis. The patient does complain of pain in his upper back. He has pain in his right shoulder in the area of the rotator cuff. The patient has pain when he is standing. He has an antalgic gait. He uses his hands to go from a sitting to a standing position. Complains of bilateral hip pain. IMPRESSION: 1. Complex medical management using opioids. 2. Anxiety disorder. 3. Bursitis. 4. Bilateral trochanteric pain in the past. 5. Cervical radiculopathy. 6. Chronic pain syndrome. 7. Hypertension. 8. Osteoarthritis in the spine. 9. History of bilateral hip pain, status post hip replacements. RECOMMENDATIONS: We discussed treatment options with the patient. At this juncture, we will continue with his current medications. He feels that these medications are beneficial. He has been working on his house. He has noted some increased pain and discomfort because of this. He was placing the toilet and notes that with the bending and lifting this has caused some exacerbation of his discomfort. Overall, he feels that things are going reasonably well and would like to continue with his medications. A script for oxycodone 15 mg 1 p.o. t.i.d. has been provided. The patient will also continue with Xanax 0.5 mg for anxiety. He feels these medications are working well. He is not having any problems with oversedation. He will call us if he has any concerns. A script for these medications [place] [address] PAIN MANAGEMENT CONSULTATION Name: WHIT KAPLAN Room: [facility]#: [id number] Admission: 02/12/20 Attend Phys: Edgar Fletcher MD Discharge: Date of : 53 Report #: [id number] We would like to thank you for letting us participate in his care. We hope he continues to improve. <ELECTRONICALLY SIGNED> By: Edgar Fletcher MD 02/23/20 0007 [id number]. Jason Fletcher MD /nt
== END ==
LOC: M.PC 04:24
PROVIDERS: ATTEND Anesthesiology Pain Medicine
DX: G89.4 Chronic pain syndrome (principal); I10 Essential (primary) hypertension; F41.9 Anxiety disorder, unspecified; M71.9 Bursopathy, unspecified; M54.12 Radiculopathy, cervical region; M47.9 Spondylosis, unspecified; Z79.891 Long term (current) use of opiate analgesic; Z96.643 Presence of artificial hip joint, bilateral; Z68.28 Body mass index [BMI] 28.0-28.9, adult; Z79.899 Other long term (current) drug therapy

== ENCOUNTER → 2020-04-08 | Outpatient (CLI) | payer OTHER ==
[~2020-04-08] MED LIST changes: +ROXICODONE15 M1 PO
--- NOTE | 2020-04-20 13:31 | PAINCON ---
[facility] [address] [place] [address] PAIN MANAGEMENT CONSULTATION Name: WHIT KAPLAN Room: [facility]#: [id number] Admission: 04/08/20 Attend Phys: Edgar Fletcher MD Discharge: Date of : 53 Report #: [id number] THIS REPORT FOR: //name// cc: Hal Bryant Reuel M. DO ~ THIS REPORT FOR: //name// CC: Edgar Bryant DATE OF SERVICE: 04/08/2020 CHIEF COMPLAINT: Pain in the hips, shoulders, back. HISTORY: The patient is a 64-year-old gentleman who has been followed in the pain clinic because of back and neck pain. He feels that overall things are going reasonably well. Feels his medications continue to be helpful. The oxycodone medication helps decrease his pain and discomfort. Activities cold weather exacerbate his discomfort. He has used heat, cold, and rest to help control the pain as well. Pain is greater than 50% improved with this current regimen. He has returned today for renewal of the medications. ALLERGIES: No known drug allergies. CURRENT MEDICATIONS: Alprazolam 0.5 mg 2 tablets at bedtime, amlodipine 5 mg, Flonase 0.5 mg, oxycodone 15 mg 1 p.o. t.i.d., and ramipril 10 mg. PAIN CLINIC ASSESSMENT AND PQRS: 1. Height 5 feet 10 inches, weight 194 pounds, BMI 28. 2. Vital signs 117/62, heart rate 65, respiratory rate 16, room air saturation 97%, temperature is 98. Pain intensity 09/29. 3. Fall history: The patient has not fallen in the last 3 months. 4. Blood thinner. The patient is not on a blood thinning medication. 5. Hypertension. The patient is being treated for hypertension. 6. Opioids greater than 6 weeks. The patient receives medication from the pain clinic. 7. Risk assessment tool, low for opioid use. 8. Functional assessment tool reviewed. 9. Recreational drug use. The patient denies. 10. Tobacco: The patient admits to use of tobacco and has smoked for the last 20 years. 11. Alcohol: The patient denies use of alcoholic beverages except on rare occasion. PHYSICAL EXAMINATION: GENERAL: The patient is a well-developed, well-[place] [address] PAIN MANAGEMENT CONSULTATION Name: WHIT KAPLAN Room: [facility]#: [id number] Admission: 04/08/20 Attend Phys: Edgar Fletcher MD Discharge: Date of : 53 Report #: [id number] his stated age. He is alert and oriented x 3. His affect is appropriate. Speech is fluent. HEENT: Normocephalic, atraumatic. Extraocular eye muscles intact. Sclerae nonicteric. Mucous membranes are moist. The patient is wearing glasses. He has a facial covering in place. The patient has decreased hearing, wears bilateral hearing aids. HEART: Regular rate. LUNGS: Clear. ABDOMEN: Nontender. MUSCULOSKELETAL: Without significant scoliosis, kyphosis or lordosis. The patient does have complaints of pain in the upper back area. Has pain in his right shoulder in the area of the right rotator cuff. The patient has pain when he is standing. Does have an antalgic gait. Uses hands to go from sitting to a standing position. Complains of bilateral hip pain, has osteoarthritis in both hips. IMPRESSION: 1. Complex medical management using opioids to help control pain. 2. Anxiety disorder. 3. Bursitis. 4. Bilateral trochanteric pain in the past. 5. Cervical radicular pain. 6. Chronic pain syndrome. 7. Hypertension. 8. Osteoarthritis in the spine. 9. History of bilateral hip pain, status post hip replacements. RECOMMENDATIONS: We discussed treatment options with the patient. At this juncture, we will continue with his medications. He feels medications are helpful. States that he is able to continue to be active at home. He does still work around his house and these medications enable him to stay reasonably busy. He is aware that opioids can become less effective as time goes on. A script for his medications of alprazolam 0.5 mg 1 p.o. t.i.d. will be continued for the next 2 months. He will also receive oxycodone 15 mg 1 p.o. t.i.d. He will call us if he has any concerns. We would like to thank you for letting us participate in his care. We hope he continues to do well. <ELECTRONICALLY SIGNED> By: Edgar Fletcher MD 04/20/20 1331 [id number]. Jason Fletcher MD /anil
== END ==
LOC: M.PC 09:00
PROVIDERS: ATTEND Anesthesiology Pain Medicine
DX: M47.816 Spondylosis without myelopathy or radiculopathy, lumbar region (principal); G89.4 Chronic pain syndrome; I10 Essential (primary) hypertension; F41.9 Anxiety disorder, unspecified; M54.12 Radiculopathy, cervical region; Z79.899 Other long term (current) drug therapy

== ENCOUNTER → 2020-06-03 | Outpatient (CLI) | payer OTHER ==
--- NOTE | 2020-06-24 14:42 | PAINCON ---
[facility] [address] [place] [address] PAIN MANAGEMENT CONSULTATION Name: WHIT KAPLAN Room: [facility]#: [id number] Admission: 06/03/20 Attend Phys: Edgar Fletcher MD Discharge: Date of : 53 Report #: [id number] THIS REPORT FOR: //name// cc: Hal Bryant Reuel M. DO ~ CC: Edgar Bryant DO DATE OF SERVICE: 06/03/2020 CHIEF COMPLAINT: Hip pain, shoulder pain and back pain. HISTORY: The patient is a 64-year-old gentleman who has been followed in the pain clinic. As you may recall, he has a history of chronic pain involving his low back and neck. He feels that the neck pain and back pain are both unchanged. They continue to be problematic. He rates it as a 3/10. He feels that his medications are helpful in both neck and back discomfort. Noticed that because of the weather being colder, his pain has changed and increased somewhat. He has greater than 50% improvement in his pain with his current medical regimen. He has returned today for renewal of the medications. ALLERGIES: No known drug allergies. CURRENT MEDICATIONS: Alprazolam 0.5 mg 2 tablets at bedtime, amlodipine 5 mg, Flonase 0.5 mg, oxycodone 15 mg 1 p.o. t.i.d., and ramipril 10 mg. PAIN CLINIC ASSESSMENT AND PQRS: 1. Height 5 feet 10 inches, weight 191 pounds, BMI is 27. 2. Vital signs: Blood pressure 134/67, heart rate 64, respiratory rate 16, room air saturation is 97%. 3. Temperature 98 degrees and pain intensity 3/10. 4. Fall history: The patient has not fallen in the last 3 months. 5. Blood thinner. The patient is not on a blood thinning medication. 6. Hypertension. The patient is being treated for hypertension. 7. Opioids greater than 6 weeks. The patient received medication from the pain clinic. 8. Risk assessment tool, low for opioid use. 9. Functional assessment tool reviewed. 10. Recreational drug use: The patient denies. 11. Tobacco: The patient admits to use of tobacco over the last 20 years. 12. Alcohol. The patient denies use of alcoholic beverages except on rare occasions. PHYSICAL EXAMINATION: GENERAL: The patient is a well-developed, well-[place] [address] PAIN MANAGEMENT CONSULTATION Name: WHIT KAPLAN Room: [facility]#: [id number] Admission: 06/03/20 Attend Phys: Edgar Fletcher MD Discharge: Date of : 53 Report #: [id number] his stated age. He is alert and oriented x 3. His affect is appropriate. Speech is fluent. HEENT: Normocephalic, atraumatic. Extraocular eye muscles intact. The patient is wearing a facial covering. HEART: Regular rate. LUNGS: Clear. ABDOMEN: Nontender. MUSCULOSKELETAL: The patient without significant scoliosis, kyphosis or lordosis. The patient does have complaints of pain in the upper portion of his back. Has pain in his right shoulder and right rotator cuff. The patient has pain while standing. Does have an antalgic gait. Notes that his pain also in calves, both left and right hips. Has some osteoarthritis in both hips. IMPRESSION: 1. Complex medical management using opioids to help control pain. 2. Anxiety disorder. 3. Bursitis. 4. Bilateral trochanteric pain in the past. 5. Cervical radicular pain. 6. Chronic pain syndrome. 7. Hypertension. 8. Osteoarthritis of the spine. 9. History of bilateral hip pain, status post hip replacements. RECOMMENDATIONS: We discussed treatment options with the patient. Risks and benefits of opioid medications were discussed. We will continue with the patient's current medications of alprazolam 0.5 mg 1 p.o. t.i.d. He will also continue with oxycodone 15 mg 1 p.o. t.i.d. He feels that these medications are helpful. He is able to think clearly. He feels that they enable him to have a more productive life. He will call us if he has any concerns. We would like to thank you for letting us participate in his care. We hope he continues to improve. <ELECTRONICALLY SIGNED> By: Edgar Fletcher MD 06/24/20 [id number]. Jason Fletcher MD /EDILBERTO
== END ==
LOC: M.PC 09:10
PROVIDERS: ATTEND Anesthesiology Pain Medicine
DX: M25.559 Pain in unspecified hip (principal); M54.5 Low back pain; M25.519 Pain in unspecified shoulder; I10 Essential (primary) hypertension

== ENCOUNTER → 2020-07-29 | Outpatient (CLI) | payer OTHER | LOC: M.PC 09:01 | PROVIDERS: ATTEND Anesthesiology Pain Medicine | DX: M54.12 Radiculopathy, cervical region (principal); F41.9 Anxiety disorder, unspecified; G89.29 Other chronic pain; I10 Essential (primary) hypertension; M17.9 Osteoarthritis of knee, unspecified; M71.50 Other bursitis, not elsewhere classified, unspecified site; Z96.643 Presence of artificial hip joint, bilateral ==

== ENCOUNTER → 2020-09-23 | Outpatient (CLI) | payer OTHER | LOC: M.PC 07:57 | PROVIDERS: ATTEND Anesthesiology Pain Medicine | DX: M54.12 Radiculopathy, cervical region (principal); F41.9 Anxiety disorder, unspecified; I10 Essential (primary) hypertension; F11.20 Opioid dependence, uncomplicated; M71.9 Bursopathy, unspecified; Z87.39 Personal history of other diseases of the musculoskeletal system and connective tissue; Z88.8 Allergy status to other drugs, medicaments and biological substances; Z79.899 Other long term (current) drug therapy ==

== ENCOUNTER → 2020-11-18 | Outpatient (CLI) | payer OTHER | LOC: M.PC 09:53 | PROVIDERS: ATTEND Anesthesiology Pain Medicine | DX: M54.12 Radiculopathy, cervical region (principal); G89.29 Other chronic pain; M71.9 Bursopathy, unspecified; I10 Essential (primary) hypertension; M47.819 Spondylosis without myelopathy or radiculopathy, site unspecified; F41.9 Anxiety disorder, unspecified; Z96.641 Presence of right artificial hip joint; Z96.642 Presence of left artificial hip joint ==

== ENCOUNTER → 2021-01-13 | Outpatient (CLI) | payer OTHER | LOC: M.PC 10:00 | PROVIDERS: ATTEND Anesthesiology Pain Medicine | DX: G89.29 Other chronic pain (principal); M54.12 Radiculopathy, cervical region; I10 Essential (primary) hypertension; M71.9 Bursopathy, unspecified; F41.9 Anxiety disorder, unspecified; F17.200 Nicotine dependence, unspecified, uncomplicated; F10.10 Alcohol abuse, uncomplicated; M47.819 Spondylosis without myelopathy or radiculopathy, site unspecified; Z68.26 Body mass index [BMI] 26.0-26.9, adult; Z96.643 Presence of artificial hip joint, bilateral; Z79.891 Long term (current) use of opiate analgesic; Z79.899 Other long term (current) drug therapy ==

== ENCOUNTER → 2021-03-10 | Outpatient (CLI) | payer OTHER | LOC: M.PC 09:47 | PROVIDERS: ATTEND Anesthesiology Pain Medicine | DX: M54.12 Radiculopathy, cervical region (principal); G89.29 Other chronic pain; I10 Essential (primary) hypertension; F41.9 Anxiety disorder, unspecified; M70.62 Trochanteric bursitis, left hip; M70.61 Trochanteric bursitis, right hip; M47.819 Spondylosis without myelopathy or radiculopathy, site unspecified; Z96.643 Presence of artificial hip joint, bilateral ==

== ENCOUNTER → 2021-05-05 | Outpatient (CLI) | payer OTHER | LOC: M.PC 09:58 | PROVIDERS: ATTEND Anesthesiology Pain Medicine | DX: M54.12 Radiculopathy, cervical region (principal); G89.29 Other chronic pain; I10 Essential (primary) hypertension; M47.9 Spondylosis, unspecified; F41.9 Anxiety disorder, unspecified; Z96.643 Presence of artificial hip joint, bilateral ==

== ENCOUNTER → 2021-06-30 | Outpatient (CLI) | payer OTHER | LOC: M.PC 10:01 | PROVIDERS: ATTEND Anesthesiology Pain Medicine | DX: M54.59 Other low back pain (principal); M54.2 Cervicalgia; M54.12 Radiculopathy, cervical region; M25.519 Pain in unspecified shoulder; I10 Essential (primary) hypertension; M47.819 Spondylosis without myelopathy or radiculopathy, site unspecified; F41.9 Anxiety disorder, unspecified; Z96.643 Presence of artificial hip joint, bilateral; Z79.899 Other long term (current) drug therapy ==

== ENCOUNTER → 2021-08-25 | Outpatient (CLI) | payer OTHER | LOC: M.PC 09:51 | PROVIDERS: ATTEND Anesthesiology Pain Medicine | DX: M54.12 Radiculopathy, cervical region (principal); M71.50 Other bursitis, not elsewhere classified, unspecified site; G89.29 Other chronic pain; I10 Essential (primary) hypertension; M19.90 Unspecified osteoarthritis, unspecified site; Z96.643 Presence of artificial hip joint, bilateral; Z88.8 Allergy status to other drugs, medicaments and biological substances ==